=== PATIENT | female | born 1990 | race Caucasian/White ===

== ENCOUNTER 2022-08-14 09:17 | Emergency (ER) | payer OTHER, SELFPAY ==
[2022-08-14 10:04] VITALS: BP 139/68; PULSE 70; RESP 18; TEMP 36.3; O2SAT 99; BMI 36.6
[2022-08-14] MEDS: diphenhydrAMINE HCL 50 MG/ML VIAL 25 MG IVPUSH (10:27)
[2022-08-14] MEDS: methylPREDNISolone Sod Succ 125 MG/2 ML VIAL IVPUSH (10:27)
[2022-08-14] MEDS: Famotidine/PF 20 MG/2 ML VIAL IVPUSH (10:27)
--- NOTE | 2022-08-14 10:28 | ED.ALLEREA ---
HPI - Allergic Reaction General Chief complaint: Allergic Reaction Stated complaint: R side of face swollen. R Eye swollen shut Time Seen by Provider: 08/14/22 10:14 Source: patient Mode of arrival: ambulatory Limitations: no limitations History of Present Illness HPI narrative: prior idiopathic angioedema not on medications other than fluoxetine and claritin, has senior procurement specialist appointment but not until October - R eye is swollen shut complaint: facial swelling Onset (ago): day(s) (yesterday) Exposure: unknown Symptoms: facial swelling, lip swelling and difficulty breathing Severity: moderate Treatment prior to arrival: benadryl Previous Allergic Reaction History: prior ED visit(s) and angioedema Related Data Previous Rx's Medication Instructions Recorded epinephrine 0.3 mg/0.3 mL 0.3 mg (0.3 mL) IM Q10M PRN 08/14/22 injection, auto-injector anaphylaxis #2 ea famotidine 20 mg tablet (Pepcid) 20 mg PO DAILY PRN abdominal 08/14/22 discomfort #30 tabs prednisone 20 mg tablet 40 mg PO DAILY 5 days #10 tabs 08/14/22 Allergies Allergy/AdvReac Type Severity Reaction Status Date / Time No Known Allergies Allergy Unverified 08/17/20 19:38 [No Known Allergies*] Review of Systems Review of Systems: Constitutional : No Fever, No Chills ENT/Mouth : positive oral swelling, No Hoarseness, No Swallowing Difficulty Eyes: No Eye Pain, pos Swelling, No Redness Cardiovascular : No Chest Pain, pos SOB Respiratory : No Cough, No Sputum, No Wheezing, pos Dyspnea Gastrointestinal : No Nausea, No Vomiting, No Diarrhea, No abdominal Pain Genitourinary : No Dysuria, No Urinary Frequency, No Hematuria Musculoskeletal : No joint pain, No Myalgias, No Joint Swelling Skin : No Skin Lesions, positive rash Neuro : No Weakness, No Numbness, No Headache Psych : No Anxiety/Panic, No Depression Heme/Lymph: No Bruising, No Lymphadenopathy Endocrine : No Polyuria, No Polydipsia All other systems reviewed and are negative [facility] Past Medical History Attestation statement: The following information was validated with the patient. Medical History (Updated 08/14/22 @ 11:53 by Soledad Perkins DO) Angioedema Depression Social History Social History (Updated 08/14/22 @ 10:36 by Soledad Perkins DO) Patient Tobacco Use Status: Never used Tobacco Advance Directives: No Advance Directives Information Provided: No Physical Exam ED Vital Signs: Vital Signs - 24 hr 08/14/22 10:04 08/14/22 10:32 08/14/22 10:34 Temperature 97.4 F Pulse Rate 70 75 64 Respiratory Rate 18 16 18 Blood Pressure 139/68 132/91 H Pulse Oximetry 99 97 Oxygen Delivery Method Room Air Room Air BMI result Body Mass Index 36.6 Appearance: Alert. Oriented X3. No acute distress. Eyes: Pupils equal, round and reactive to light. R eye boggy swollen non warm non erythematous ENT: posterior Pharynx / tongue normal. lower lip mild swelling, no stridor . R TM normal Neck: Normal inspection. Neck supple. CVS: Normal heart rate and rhythm. Pulses normal. Respiratory: No respiratory distress. Breath sounds normal. Abdomen: Soft and non-tender. Skin: Skin warm and dry. Normal skin color. Normal skin turgor. Extremities: No lower extremity edema. No calf ttp Neuro: Oriented X 3. No motor deficit. No sensory deficit. Course Course Course Narrative: only residual is R eye swelling discussed she will need to be on steroids/pepcid will give epi pen discussed when to use it, plan is to ice eye at home MDM - Allergic Reaction MDM Narrative Medical decision making narrative: 31 yo female with recurrent idiopathic angioedema no fam hx, not on ADRIANA-i, here with R eye swelling, lip swelling - mild. Appearance concerning for allergy no warmth erythema fluctuance to suggest infection - IV steroids, benadryl, pepcid ordered. Discharge Plan Discharge Clinical Impression: Angioedema Qualifiers: Encounter type: initial encounter Qualified Code(s): T78.3XXA - Angioneurotic edema, initial encounter Patient Disposition: Home, Self-Care Instructions: Angioedema (ED) Additional Instructions: return to ED for any worsening symptoms or concerns continue to take your claritin you will need to ice your eye as well to help with the swelling, use a cloth in between epi pen if you feel your throat is closing, tongue is swelling call 911 follow up with your PCP and senior procurement specialist take pepcid while on prednisone Prescriptions: New prednisone 20 mg tablet 40 mg PO DAILY 5 Days Qty: 10 0RF famotidine [Pepcid] 20 mg tablet 20 mg PO DAILY PRN (Reason: abdominal discomfort) Qty: 30 0RF epinephrine 0.3 mg/0.3 mL auto-injector 0.3 mg IM Q10M PRN (Reason: anaphylaxis) Qty: 2 0RF Rx Instructions: for 2 doses Stand Alone Forms: Work/School Release
[2022-08-14 10:32] VITALS: BP 132/91; PULSE 75; RESP 16; O2SAT 97
[2022-08-14] MEDS: Albuterol Sulfate (0.083%) 2.5 MG/3 ML VIAL.NEB INHALE (10:33)
[2022-08-14 10:34] VITALS: PULSE 64; RESP 18; O2SAT 98
--- NOTE | 2022-08-14 10:34 | PC.NURSE ---
Facial swelling more so noted to right eye, eye closed shut. Unk allergen,, similar episodes in past. Has allergy appt in October. No diff breathing or angioedema noted. NSR on tele. HR 70s. Medicated as charted. VSS. RT at bedside for updraft
[2022-08-14 11:58] VITALS: BP 107/72; PULSE 65; RESP 14; O2SAT 97
--- NOTE | 2022-08-14 12:32 | PC.NURSE ---
PT ALERT AND ORIENTED X 3. RIGHT EYE REMAINS SWOLLEN. AIRWAY PATENT, MANAGING SECRETIONS. SPEAKING IN FULL CLEAR SENTENCES. NO ACUTE DISTRESS NOTED. PLAN IS FOR DC HOME. PT AGREEABLE.
== END 2022-08-14 12:34 | disposition home or self-care (01) ==
PROVIDERS: Emergency Provider Emergency Medicine
DX: L50.0 Allergic urticaria (principal); Z79.899 Other long term (current) drug therapy
CPT/HCPCS: 94640; 99284; J1200; J2930